=== PATIENT | male | born 1950 | race Two or more races ===

== ENCOUNTER 2020-08-22 14:25 | Inpatient (IN) | payer MEDICARE, MEDICAID ==
[~2020-08-22] VITALS: Ht 177.8 cm; Wt 73.0 kg
[2020-08-22 14:28] VITALS: BP 121/78
--- NOTE | 2020-08-22 14:28 | NUR ---
ED Nurse Note: Patient from home and walked in due to evaluation for failure to thrive. Patient was sent by his PCP and was referred to be admitted. Reports generalized body pain and possible placement. AAO x4, ambulatory with non labored breathing.
--- NOTE | 2020-08-22 14:55 | Emergency Room Report ---
History of Present Illness General Chief Complaint: General Complaint Source: Patient Present Illness HPI Disclaimer: Please note that this report is being documented using [employer] technology. This can lead to erroneous entry secondary to incorrect interpretation by the dictating instrument. HPI: 70-year-old male history of Parkinson's disease, presents from home due to generalized weakness difficulty completing ADLs, multiple falls. Patient was formally on hospice but currently family decided to do a trial of physical therapy to see if patient could improve his condition. He is not having difficulty eating and taking care of himself. Primary care doctor is Dr. Cui. Patient is a poor historian. Allergies: Coded Allergies: No Known Allergies (Unverified , 08/22/20) COVID-19 Screening Contact w/high risk pt: No Experienced COVID-19 symptoms?: No COVID-19 Testing performed SUPERVISOR CELL MAINTENANCE: No Patient History Reviewed Nursing Documentation: PMH: Agreed; PSxH: Agreed Nursing Documentation-PMH Past Medical History: No History, Except For Hx Hypertension: Yes Hx Neurological Problems: Yes - parkinsons disease Review of Systems All Other Systems: negative except mentioned in HPI Physical Exam Vital Signs Date Time Temp Pulse Resp B/P (MAP) Pulse Ox O2 Delivery O2 Flow Rate FiO2 08/22/20 14:28 97.5 80 20 121/78 (92) 100 Room Air Sp02 EP Interpretation: reviewed, normal General Appearance: no apparent distress, Chronically Ill Head: normocephalic, atraumatic Eyes: bilateral eye PERRL, bilateral eye EOMI ENT: hearing grossly normal, moist mucus membranes Neck: full range of motion, supple, other - No midline tenderness Respiratory: lungs clear, normal breath sounds, no rhonchi, no respiratory distress, no retraction, no wheezing Cardiovascular #1: normal peripheral pulses, regular rate, rhythm, no murmur Gastrointestinal: non tender, soft, non-distended, no guarding Musculoskeletal: other - CT spine and T-spine nontender palpation lumbar spine mildly tender without step-off or deformity, patient ambulates with assist Neurologic: alert, no focal defects, other - Patient oriented to name and place. Skin: normal color, warm/dry Medical Decision Making Diagnostic Impression: Primary Impression: Failure to thrive Additional Impressions: Frequent falls Low back pain History of Parkinson's disease ER Course MDM: Differential included not limited to failure to thrive, dehydration, worsening Parkinson's disease, back contusion, lumbar injury to name a few Clinical course-IV inserted, laboratory studies were sent. Laboratory studies did not demonstrate any significant abnormalities. CT scan of the brain was ordered did not show any acute traumatic injury in addition lumbar CT did not show any evidence of acute traumatic injury. As patient unable to complete his ADLs with frequent falls will be placed on the medical floor for further observation and treatment. Admitted under Dr. Cui. Labs - Laboratory Tests Test 08/22/20 14:50 08/22/20 15:00 White Blood Count 9.7 K/UL (4.8-10.8) Red Blood Count 4.76 M/UL (4.70-6.10) Hemoglobin 14.6 G/DL (14.2-18.0) Hematocrit 42.4 % (42.0-52.0) Mean Corpuscular Volume 89 FL (80-99) Mean Corpuscular Hemoglobin 30.7 PG (27.0-31.0) Mean Corpuscular Hemoglobin Concent 34.4 G/DL (32.0-36.0) Red Cell Distribution Width 12.4 % (11.6-14.8) Platelet Count 163 K/UL (150-450) Mean Platelet Volume 7.9 FL (6.5-10.1) Neutrophils (%) (Auto) 53.2 % (45.0-75.0) Lymphocytes (%) (Auto) 35.8 % (20.0-45.0) Monocytes (%) (Auto) 7.9 % (1.0-10.0) Eosinophils (%) (Auto) 2.2 % (0.0-3.0) Basophils (%) (Auto) 0.8 % (0.0-2.0) Sodium Level 142 MMOL/L (136-145) Potassium Level 3.5 MMOL/L (3.5-5.1) Chloride Level 106 MMOL/L (98-107) Carbon Dioxide Level 29 MMOL/L (21-32) Anion Gap 7 mmol/L (5-15) Blood Urea Nitrogen 12 mg/dL (7-18) Creatinine 0.8 MG/DL (0.55-1.30) Estimated Glomerular Filtration Rate > 60 mL/min (>60) Glucose Level 126 MG/DL (74-106) H Calcium Level 8.6 MG/DL (8.5-10.1) Total Bilirubin 0.7 MG/DL (0.2-1.0) Aspartate Amino Transferase (AST) 13 U/L (15-37) L Alanine Aminotransferase (ALT) < 6 U/L (12-78) L Alkaline Phosphatase 76 U/L (46-116) Total Protein 6.6 G/DL (6.4-8.2) Albumin 3.6 G/DL (3.4-5.0) Globulin 3.0 g/dL Albumin/Globulin Ratio 1.2 (1.0-2.7) Lipase 70 U/L (73-393) L Urine Color Yellow Urine Appearance Slightly cloudy Urine pH 7 (4.5-8.0) Urine Specific [place] 1.015 (1.005-1.035) Urine Protein Negative (NEGATIVE) Urine Glucose (UA) Negative (NEGATIVE) Urine Ketones 2+ (NEGATIVE) H Urine Blood 1+ (NEGATIVE) H Urine Nitrite Negative (NEGATIVE) Urine Bilirubin Negative (NEGATIVE) Urine Urobilinogen Normal MG/DL (0.0-1.0) Urine Leukocyte Esterase Negative (NEGATIVE) Urine RBC 0-2 /HPF (0 - 0) H Urine WBC 0-2 /HPF (0 - 0) Urine Squamous Epithelial Cells None /LPF (NONE/OCC) Urine Amorphous Sediment Moderate /LPF (NONE) H Urine Bacteria Few /HPF (NONE) CT/MRI/US Diagnostic Results CT/MRI/US Diagnostic Results #1: Imaging Test Ordered: CT scan of the brain Impression No acute process CT/MRI/US Diagnostic Results #2: Imaging Test Ordered: CT scan of the L-spine Impression No acute traumatic injury Last Vital Signs Date Time Temp Pulse Resp B/P (MAP) Pulse Ox O2 Delivery O2 Flow Rate FiO2 08/22/20 14:28 97.5 80 20 121/78 (92) 100 Room Air Disposition: ADMITTED INPATIENT Condition: Serious Tez Olmstead M.D. Aug 22, 2020 14:55
--- NOTE | 2020-08-22 15:08 | NUR ---
ED Nurse Note: Collected blood and urine then sent.
[2020-08-22 15:13] LABS: BASOPHILS % (AUTO) 0.8 % (0.0-2.0); EOSINOPHILS % (AUTO) 2.2 % (0.0-3.0); HEMATOCRIT 42.4 % (42.0-52.0); HEMOGLOBIN 14.6 G/DL (14.2-18.0); LYMPHOCYTES % (AUTO) 35.8 % (20.0-45.0); MEAN CORPUSCULAR VOLUME 89 FL (80-99); MONOCYTES % (AUTO) 7.9 % (1.0-10.0); NEUTROPHILS % (AUTO) 53.2 % (45.0-75.0); PLATELET COUNT 163 K/UL (150-450); RED BLOOD COUNT 4.76 M/UL (4.70-6.10); RED CELL DISTRIBUTION WIDTH 12.4 % (11.6-14.8); WHITE BLOOD COUNT 9.7 K/UL (4.8-10.8)
[2020-08-22 15:20] LABS: ANION GAP 7 mmol/L (5-15); BLOOD UREA NITROGEN 12 mg/dL (7-18); CALCIUM 8.6 MG/DL (8.5-10.1); CARBON DIOXIDE 29 MMOL/L (21-32); CHLORIDE 106 MMOL/L (98-107); CREATININE 0.8 MG/DL (0.55-1.30); POTASSIUM 3.5 MMOL/L (3.5-5.1); SODIUM 142 MMOL/L (136-145)
[2020-08-22 15:25] LABS: ALANINE AMINOTRANSFERASE < 6 U/L (12-78); ALBUMIN 3.6 G/DL (3.4-5.0); ALBUMIN/GLOBULIN RATIO 1.2 (1.0-2.7); ALKALINE PHOSPHATASE 76 U/L (46-116); ASPARTATE AMINO TRANSFERASE 13 U/L (15-37); BILIRUBIN,TOTAL 0.7 MG/DL (0.2-1.0)
[2020-08-22 15:31] LABS: APPEARANCE,URINE SLIGHTLY CLOUDY; BILIRUBIN, URINE NEGATIVE (NEGATIVE); GLUCOSE, URINE (UA) NEGATIVE (NEGATIVE); KETONES,URINE 2+ (NEGATIVE); LEUKOCYTE ESTERASE ,URINE NEGATIVE (NEGATIVE); NITRITE,URINE NEGATIVE (NEGATIVE); PH,URINE 7 (4.5-8.0); PROTEIN,URINE NEGATIVE (NEGATIVE); UROBILINOGEN,URINE NORMAL MG/DL (0.0-1.0)
[2020-08-22 15:33] LABS: COLOR,URINE YELLOW
--- NOTE | 2020-08-22 16:14 | NUR ---
ED Nurse Note: Telephone report given to Hudson Chao for continuity of care.
[2020-08-22] MEDS ORDERED: LORazepam 1mg tab ORAL PRN (16:15)
[2020-08-22] MEDS ORDERED: Morphine Sulfate 2mg/ml Inj(IV/IM USE ONLY) IVP PRN (16:15)
--- NOTE | 2020-08-22 16:15 | Diagnostic Imaging Report ---
Indications: Trauma, pain, history of multiple falls Technique: Spiral acquisitions obtained through the lumbar spine. Multiplanar reconstructions were generated. No IV contrast utilized. Total dose length product 257 mGycm. CTDIvol(s) 7 mGy. Dose reduction achieved using automated exposure control Comparison: none Findings: Bony alignment is normal. Vertebral body heights are preserved. No acute fracture. No dislocation. There are degenerative proliferative changes at multiple levels. The disc spaces are preserved. There is some vacuum disc formation at L2-3 and at L4-5. At L4-5, there is circumferential annular bulge as well as broad-based posterior disc protrusion. This results in moderate narrowing of the spinal canal, as well as mild compromise of the bilateral neural foramina. There is bilateral facet arthrosis at this level. At L5-S1, there is circumferential annular bulge which does not significantly narrow the spinal canal. There is moderate left and mild to moderate right neural foraminal stenosis. At the remaining disc levels, no significant disc bulge or protrusion, spinal stenosis, or neural foraminal stenosis. The included extraspinal soft tissues are unremarkable Impression: No acute bony trauma Degenerative changes, as detailed above The CT scanner at [facility] is accredited by the [employer] and the scans are performed using protocols designed to limit radiation exposure to as low as reasonably achievable to attain images of sufficient resolution adequate for diagnostic evaluation.
--- NOTE | 2020-08-22 16:17 | Diagnostic Imaging Report ---
Indications: Head trauma, multiple falls, head pain Technique: Spiral acquisitions obtained through the brain. Angled axial and coronal 5 x 5 mm slices were reconstructed. Total dose length product 1003 mGycm. CTDI vol(s) 53 mGy. Dose reduction achieved using automated exposure control Comparison: None. Findings: No acute intracranial hemorrhage or edema, mass effect, nor midline shift. Normal size ventricles and extra-axial CSF spaces. Normal sow-white differentiation. The mastoids are clear. The visualized orbits and sinuses are unremarkable. The calvarium is intact. Impression: Negative The CT scanner at [facility] is accredited by the [employer] and the scans are performed using protocols designed to limit radiation exposure to as low as reasonably achievable to attain images of sufficient resolution adequate for diagnostic evaluation.
[2020-08-22 16:28] VITALS: BP 118/70
--- NOTE | 2020-08-22 16:28 | NUR ---
ED Nurse Note: patient transferred to med surg unit with all his belongings.
--- NOTE | 2020-08-22 16:42 | History and Physical ---
History of Present Illness General Date patient seen: Aug 22, 2020 Time patient seen: 15:00 Reason for Hospitalization: General Complaint OF WEAKNESS AND FALLS AT HOME Present Illness HPI 70-year-old male history of Parkinson's disease, presents from home due to generalized weakness difficulty completing ADLs, multiple falls. Patient was formally on hospice but currently family decided to do a trial of physical therapy to see if patient could improve his condition. he is complaint with his medications. He is not having difficulty eating and taking care of himself. Patient is a poor historian and reports back pain. I spoke with Dr. Olmstead from the ER and admission is requested for medical work up, rehabilitation evaluation. Allergies: Coded Allergies: No Known Allergies (Unverified , 08/22/20) COVID-19 Screening Contact w/high risk pt: No Experienced COVID-19 symptoms?: No Patient History Healthcare decision maker Resuscitation status Advanced Directive on File Review of Systems All Other Systems: negative except mentioned in HPI Physical Exam General Appearance: WD/WN Lines, tubes and drains: peripheral HEENT: normocephalic, atraumatic Neck: non-tender, normal alignment Respiratory/Chest: lungs clear Cardiovascular/Chest: normal rate Abdomen: non tender Skin Exam: normal pigmentation Neurologic: pan helper II-XII grossly normal Last 24 Hour Vital Signs Date Time Temp Pulse Resp B/P (MAP) Pulse Ox O2 Delivery O2 Flow Rate FiO2 08/22/20 14:38 80 20 Room Air 08/22/20 14:28 97.5 80 20 121/78 (92) 100 Room Air 08/22/20 14:28 97.5 80 20 121/78 100 Room Air Laboratory Tests Test 08/22/20 14:50 08/22/20 15:00 White Blood Count 9.7 K/UL (4.8-10.8) Red Blood Count 4.76 M/UL (4.70-6.10) Hemoglobin 14.6 G/DL (14.2-18.0) Hematocrit 42.4 % (42.0-52.0) Mean Corpuscular Volume 89 FL (80-99) Mean Corpuscular Hemoglobin 30.7 PG (27.0-31.0) Mean Corpuscular Hemoglobin Concent 34.4 G/DL (32.0-36.0) Red Cell Distribution Width 12.4 % (11.6-14.8) Platelet Count 163 K/UL (150-450) Mean Platelet Volume 7.9 FL (6.5-10.1) Neutrophils (%) (Auto) 53.2 % (45.0-75.0) Lymphocytes (%) (Auto) 35.8 % (20.0-45.0) Monocytes (%) (Auto) 7.9 % (1.0-10.0) Eosinophils (%) (Auto) 2.2 % (0.0-3.0) Basophils (%) (Auto) 0.8 % (0.0-2.0) Sodium Level 142 MMOL/L (136-145) Potassium Level 3.5 MMOL/L (3.5-5.1) Chloride Level 106 MMOL/L (98-107) Carbon Dioxide Level 29 MMOL/L (21-32) Anion Gap 7 mmol/L (5-15) Blood Urea Nitrogen 12 mg/dL (7-18) Creatinine 0.8 MG/DL (0.55-1.30) Estimat Glomerular Filtration Rate > 60 mL/min (>60) Glucose Level 126 MG/DL (74-106) H Calcium Level 8.6 MG/DL (8.5-10.1) Total Bilirubin 0.7 MG/DL (0.2-1.0) Aspartate Amino Transf (AST/SGOT) 13 U/L (15-37) L Alanine Aminotransferase (ALT/SGPT) < 6 U/L (12-78) L Alkaline Phosphatase 76 U/L (46-116) Total Protein 6.6 G/DL (6.4-8.2) Albumin 3.6 G/DL (3.4-5.0) Globulin 3.0 g/dL Albumin/Globulin Ratio 1.2 (1.0-2.7) Lipase 70 U/L (73-393) L Urine Color Yellow Urine Appearance Slightly cloudy Urine pH 7 (4.5-8.0) Urine Specific [place] 1.015 (1.005-1.035) Urine Protein Negative (NEGATIVE) Urine Glucose (UA) Negative (NEGATIVE) Urine Ketones 2+ (NEGATIVE) H Urine Blood 1+ (NEGATIVE) H Urine Nitrite Negative (NEGATIVE) Urine Bilirubin Negative (NEGATIVE) Urine Urobilinogen Normal MG/DL (0.0-1.0) Urine Leukocyte Esterase Negative (NEGATIVE) Urine RBC 0-2 /HPF (0 - 0) H Urine WBC 0-2 /HPF (0 - 0) Urine Squamous Epithelial Cells None /LPF (NONE/OCC) Urine Amorphous Sediment Moderate /LPF (NONE) H Urine Bacteria Few /HPF (NONE) Height (Feet): 5 Height (Inches): 10.00 Weight (Pounds): 161 Medications Current Medications Medications (Trade) Dose Ordered Sig/Erica Route PRN Reason Start Time Stop Time Status Last Admin Dose Admin Acetaminophen (Tylenol) 650 mg Q4H PRN ORAL Mild Pain (Pain Scale 1-3) 08/22/20 16:15 09/21/20 16:14 Dextrose (Dextrose 50%) 25 ml Q30M PRN IV Hypoglycemia 08/22/20 16:15 11/20/20 16:14 Dextrose (Dextrose 50%) 50 ml Q30M PRN IV Hypoglycemia 08/22/20 16:15 11/20/20 16:14 Docusate Sodium (Colace) 100 mg EVERY 12 HOURS ORAL 08/22/20 21:00 09/21/20 20:59 Enoxaparin Sodium (Lovenox) 40 mg Q24H SUBQ 08/22/20 18:00 11/20/20 17:59 Lorazepam (Ativan) 1 mg Q4H PRN ORAL For Anxiety 08/22/20 16:15 08/29/20 16:14 Morphine Sulfate (Morphine Sulfate) 1 mg Q3H PRN IVP For Pain 08/22/20 16:15 08/29/20 16:14 Ondansetron HCl (Zofran) 4 mg Q6H PRN IVP Nausea & Vomiting 08/22/20 16:15 09/21/20 16:14 Pantoprazole (Protonix) 40 mg DAILY ORAL 08/23/20 09:00 09/22/20 08:59 Sodium Chloride 1,000 ml @ 100 mls/hr Q10H IV 08/22/20 15:00 09/21/20 14:59 08/22/20 15:06 Temazepam (Restoril) 15 mg HSPRN PRN ORAL Insomnia 08/22/20 16:15 08/29/20 16:14 Assessment/Plan Status: not improved Assessment/Plan: 70-year-old male history of Parkinson's disease, presents from home due to generalized weakness difficulty completing ADLs, multiple falls. # Back pain X rays and CT head ordered and will follow up results Pain control # Parkinson's disease with no autonomic dysfunction. Resume Sinemet. At home he uses Neupro TD patch which is not in the [facility] formulary. Will request family to bring the medication. # Hypertensive heart disease Resume Amlodipine # Generalized weakness and recurrent falls PT evaluation needed Consider SNF placement if indicated. # MDD Resume Trazadone DIet Cardiac DVT ppx with LMWH FULL CODE Estimate 2-3 hospital stay for placement if indicated. Victor Manuel Cui MD Aug 22, 2020 16:42
--- NOTE | 2020-08-22 16:49 | NUR ---
NURSE NOTES: Patient received from ER from AIDE Mendoza. Patient arrived at unit at 1640, awake, alert and oriented x 3-4, able to verbalize needs with unclear speech noted, no SOB, skin warm and dry to touch, denies any pain or discomfort at this time, bed set in lowest position with breaks engaged and alarm on. On room air. IV line present on right AC, skin assessment done, no skin breakdown noted at this time. Belongings checked and complete. Pt was oriented to room and staff, adjusting well. Will continue to monitor and proceed with plan of care, call light within reach.
[2020-08-22] MEDS: Levodopa/Carbidopa 25/100 tab ORAL SCH ×2 (17:03→20:23)
[2020-08-22] MEDS: Enoxaparin 40mg Inj SUBQ SCH (17:04)
--- NOTE | 2020-08-22 19:30 | NUR ---
NURSE HAND-OFF: Important Events on Shift:[fall and safety precautions, IV fluids, monitor VS and labs, assisting with ADLs] Patient Status: [stable] Diet: [regular low sodium diet] Pending Orders: [] Pending Results/Labs:[] Pending MD notification:[] Latest Vital Signs: Temperature 98.2 , Pulse 74 , B/P 123 /75 , Respiratory Rate 16 , O2 SAT 100 , Room Air, O2 Flow Rate . Vital Sign Comment: [] Latest Arrington Fall Score: 55 Fall Risk: High Risk Safety Measures: Call light Within Reach, Bed Alarm , Side Rails Side Rails x2, Bed position . Fall Precautions: Yellow Socks Report given to [AIDE Aranda].
[2020-08-22 20:00] VITALS: BP 123/76
--- NOTE | 2020-08-22 20:08 | NUR ---
NURSE NOTES: Patient is in bed resting at this time. Able to make needs known. On room air with no signs of distress or SOB. IV intact and patent. Bed locked and in lowest position. Call light in reach. Will continue plan of care.
[2020-08-22] MEDS: TraZODone 50mg tab ORAL SCH (20:23)
[2020-08-22] MEDS: Docusate 100mg cap ORAL SCH (20:23)
[2020-08-23 04:00] VITALS: BP 146/81
--- NOTE | 2020-08-23 06:31 | NUR ---
NURSE HAND-OFF: Important Events on Shift: No events Patient Status: Stable Diet: Low Na Diet Pending Orders: N/A Pending Results/Labs: CBC, TSH, Mag, Lipid panel, HA1C, BMP Pending MD notification: N/A Latest Vital Signs: Temperature 97.7 , Pulse 65 , B/P 146 /81 , Respiratory Rate 18 , O2 SAT 96 , Room Air, O2 Flow Rate . Vital Sign Comment: N/A Latest Arrington Fall Score: 55 Fall Risk: High Risk Safety Measures: Call light Within Reach, Bed Alarm Zone 1, Side Rails Side Rails x2, Bed position Low and Locked. Fall Precautions: Yellow Socks Yellow Gown Door Sign Patient Fall Education Addendum: 08/23/20 at 0734 by JASBIR RIOS RN Report given to AIDE Chao
[2020-08-23 07:22] LABS: ANION GAP 8 mmol/L (5-15); BASOPHILS % (AUTO) 0.8 % (0.0-2.0); BLOOD UREA NITROGEN 9 mg/dL (7-18); CALCIUM 8.6 MG/DL (8.5-10.1); CARBON DIOXIDE 27 MMOL/L (21-32); CHLORIDE 108 MMOL/L (98-107); CHOLESTEROL 175 MG/DL (< 200); CREATININE 0.9 MG/DL (0.55-1.30); EOSINOPHILS % (AUTO) 4.2 % (0.0-3.0); HDL CHOLESTEROL 53 MG/DL (40-60); HEMATOCRIT 45.9 % (42.0-52.0); HEMOGLOBIN 15.1 G/DL (14.2-18.0); LYMPHOCYTES % (AUTO) 38.2 % (20.0-45.0); MEAN CORPUSCULAR VOLUME 92 FL (80-99); MONOCYTES % (AUTO) 7.6 % (1.0-10.0); NEUTROPHILS % (AUTO) 49.2 % (45.0-75.0); PLATELET COUNT 166 K/UL (150-450); POTASSIUM 3.6 MMOL/L (3.5-5.1); RED BLOOD COUNT 4.99 M/UL (4.70-6.10); RED CELL DISTRIBUTION WIDTH 12.5 % (11.6-14.8); SODIUM 143 MMOL/L (136-145); TRIGLYCERIDES 85 MG/DL (30-150); WHITE BLOOD COUNT 8.3 K/UL (4.8-10.8)
--- NOTE | 2020-08-23 07:28 | NUR ---
NURSE NOTES: Received report from AIDE Aranda. Patient in bed, awake, alert and oriented x 3-4, no SOB, bed in lowest position with breaks engaged and alarm on, on room air, denies any pain or discomfort at this time, consumed 100% of meals, IV line intact and patent running IV hydration, will continue to monitor and proceed with plan of care, call light within reach at all times
[2020-08-23 08:00] VITALS: BP 138/79
[2020-08-23] MEDS: Docusate 100mg cap ORAL SCH ×2 (08:24→21:15)
[2020-08-23] MEDS: Levodopa/Carbidopa 25/100 tab ORAL SCH ×4 (08:24→21:15)
[2020-08-23] MEDS: Amantadine 100mg cap ORAL SCH (08:25)
--- NOTE | 2020-08-23 10:35 | NUR ---
PT EVALUATION NOTE Patient seen for initial evaluation and treatment initiated. Patient presents with generalized weakness and decreased balance which impairs patient's ability to perform mobility tasks safely. Patient able to perform bed mobility and transfer with SBA. Patient able to ambulate 75 ft with CGA and a FWW. Patient with festinating gait, is at high risk for falls. Patient will benefit from skilled inpatient PT intervention to increase strength and postural stability for improved level of functional mobility and for safety. Recommend discharge to SNF for continued rehab once medically cleared by MD as patient is a high fall risk. Patient states that he has a FWW and a wheelchair at home. Addendum: 08/23/20 at 1315 by RAFAEL BOLIVAR PT Amended: Links added.
--- NOTE | 2020-08-23 11:08 | NUR ---
RD ASSESSMENT & RECOMMENDATIONS SEE CARE ACTIVITY FOR COMPLETE ASSESSMENT DAILY ESTIMATED NEEDS: Needs based on cardiac 72.5kg 25-30 kcals/kg 7952-2112 total kcals 1-1.2 g protein/kg 73-87 g total protein 25-30 mL/kg 0427-2568 total fluid mLs NUTRITION DIAGNOSIS: Decrease sodium needs r/t cardiac history as evidenced by pt w/ HTN, BP elev (138/79), w/ elev LDL (112) CURRENT DIET: Low Na diet PO DIET RECOMMENDATIONS: Maintain Low Na diet 1:1 feeds ADDITIONAL RECOMMENDATIONS: 1) Maintain calibrated bed scale wts 2) Monitor BG, need for carb control diet 3) Add Ensure Enlive 1 bottle qdaily (change to Glucerna w/ elev BG) 4) 1:1 feeds w/ all meals
[2020-08-23 12:00] VITALS: BP 133/84
--- NOTE | 2020-08-23 14:16 | NUR ---
CASE MANAGEMENT:INITIAL REVIEW 70 YR OLD MALE BIB FAMILY FROM HOME CC;GENERAL COMPLAINT PMH;PARKINSON'S DISEASE SI;FAILURE TO THRIVE 98.2 80 20 123/76 98% ON RA HEAD CT ~ NEGATIVE SPINE CT ~ No acute bony trauma. Degenerative changes, as detailed above IS;IVF NS ADMITTED TO MED SURG MED SURG STATUS DCP;SNF PLACEMENT
--- NOTE | 2020-08-23 14:23 | NUR ---
DISCHARGE PLANNING PATIENT HAS BEEN REFERRED [facility] P [phone] F [phone] Addendum: 08/24/20 at 1414 by THEA GREENE LVN LVN Gil PRADO AT [facility]. PATIENT ACCEPTED AND ABDULKADIR NEWSOME CAN ADMIT PATIENT OF 08/25/[address] GREENE INFORMED
--- NOTE | 2020-08-23 14:43 | General Progress Note ---
Subjective Date patient seen: Aug 23, 2020 Time patient seen: 14:00 ROS Limited/Unobtainable: Yes Allergies: Coded Allergies: No Known Allergies (Unverified , 08/22/20) All Systems: reviewed and negative except above Subjective Patient is resting comfortably. He reports taking Sinemet every 3 hours at home. Denies new pain, discomfort. Appetite and sleep are adequate. PT session was done. Objective Last 24 Hour Vital Signs Date Time Temp Pulse Resp B/P (MAP) Pulse Ox O2 Delivery O2 Flow Rate FiO2 08/23/20 12:00 98.2 74 18 133/84 (100) 98 08/23/20 09:00 Room Air 08/23/20 08:00 98.9 70 18 138/79 (98) 98 08/23/20 04:00 97.7 65 18 146/81 (102) 96 08/22/20 21:00 Room Air 08/22/20 20:00 98.2 79 18 123/76 (92) 98 08/22/20 17:28 Room Air 08/22/20 17:03 74 123/75 08/22/20 16:28 98.2 74 16 118/70 100 Room Air 08/22/20 16:28 98.2 74 16 118/70 100 Room Air Intake and Output 08/22/20 08/23/20 19:00 07:00 Intake Total 220 ml 300 ml Balance 220 ml 300 ml Intake Oral 120 ml 300 ml IV Total 100 ml # Voids 2 4 Laboratory Tests 08/22/20 14:50: White Blood Count 9.7, Red Blood Count 4.76, Hemoglobin 14.6, Hematocrit 42.4, Mean Corpuscular Volume 89, Mean Corpuscular Hemoglobin 30.7, Mean Corpuscular Hemoglobin Concent 34.4, Red Cell Distribution Width 12.4, Platelet Count 163, Mean Platelet Volume 7.9, Neutrophils (%) (Auto) 53.2, Lymphocytes (%) (Auto) 35.8, Monocytes (%) (Auto) 7.9, Eosinophils (%) (Auto) 2.2, Basophils (%) (Auto) 0.8, Sodium Level 142, Potassium Level 3.5, Chloride Level 106, Carbon Dioxide Level 29, Anion Gap 7, Blood Urea Nitrogen 12, Creatinine 0.8, Estimat Glome rular Filtration Rate > 60, Glucose Level 126H, Calcium Level 8.6, Total Bilirubin 0.7, Aspartate Amino Transf (AST/SGOT) 13L, Alanine Aminotransferase (ALT/SGPT) < 6L, Alkaline Phosphatase 76, Total Protein 6.6, Albumin 3.6, Globulin 3.0, Albumin/Globulin Ratio 1.2, Lipase 70L 08/22/20 15:00: Urine Color Yellow, Urine Appearance Slightly cloudy, Urine pH 7, Urine Specific [place] 1.015, Urine Protein Negative, Urine Glucose (UA) Negative, Urine Ketones 2+H, Urine Blood 1+H, Urine Nitrite Negative, Urine Bilirubin Negative, Urine Urobilinogen Normal, Urine Leukocyte Esterase Negative, Urine RBC 0-2H, Urine WBC 0-2, Urine Squamous Epithelial Cells None, Urine Amorphous Sediment ModerateH, Urine Bacteria Few 08/23/20 06:10: White Blood Count 8.3, Red Blood Count 4.99, Hemoglobin 15.1, Hematocrit 45.9, Mean Corpuscular Volume 92, Mean Corpuscular Hemoglobin 30.2, Mean Corpuscular Hemoglobin Concent 32.8, Red Cell Distribution Width 12.5, Platelet Count 166, Mean Platelet Volume 7.7, Neutrophils (%) (Auto) 49.2, Lymphocytes (%) (Auto) 38.2, Monocytes (%) (Auto) 7.6, Eosinophils (%) (Auto) 4.2H, Basophils (%) (Auto) 0.8, Sodium Level 143, Potassium Level 3.6, Chloride Level 108H, Carbon Dioxide Level 27, Anion Gap 8, Blood Urea Nitrogen 9, Creatinine 0.9, Estimat Glomerular Filtration Rate > 60, Glucose Level 84, Calcium Level 8.6, Hemoglobin A1c 6.0, Magnesium Level 2.1, Triglycerides Level 85, Cholesterol Level 175, LDL Cholesterol 112H, HDL Cholesterol 53, Cholesterol/HDL Ratio 3.3, Thyroid Stimulating Hormone (TSH) 0.591 Height (Feet): 5 Height (Inches): 10.00 Weight (Pounds): 161 General Appearance: WD/WN EENT: PERRL/EOMI Neck: non-tender Cardiovascular: normal peripheral pulses Respiratory/Chest: lungs clear Abdomen: soft Neurologic: scutcher tender II-XII grossly normal Skin: normal pigmentation Assessment/Plan Status: not improved Assessment/Plan: 70-year-old male history of Parkinson's disease, presents from home due to generalized weakness difficulty completing ADLs, multiple falls. # Back pain CT L spine and CT head ordered and will follow up results are reviewed. CT head and CT lumbar spine without significant abnormalities. Pain control # Parkinson's disease with no autonomic dysfunction. Resume Sinemet. Will adjust therapy. [place] [facility] will continue chronic therapy. At home he uses Neupro TD patch [place] [facility] [place] Will request family to bring the medication. # Hypertensive heart disease On Amlodipine # Generalized weakness and recurrent falls PT evaluation needed SNF placement is recommended and referral per family request. # MDD Resume Trazadone DIet Cardiac DVT ppx with LMWH FULL CODE Estimate 2-3 hospital stay for placement if indicated. Victor Manuel Cui MD Aug 23, 2020 14:43
[2020-08-23 16:00] VITALS: BP 136/76
[2020-08-23] MEDS: EXELON TDERMAL SCH (16:28)
[2020-08-23] MEDS: Enoxaparin 40mg Inj SUBQ SCH (17:28)
--- NOTE | 2020-08-23 19:29 | NUR ---
NURSE HAND-OFF: Important Events on Shift:[fall and safety precautions, assisting with ADLs, IV hydration] Patient Status: [stable] Diet: [regular diet] Pending Orders: [] Pending Results/Labs:[] Pending MD notification:[] Latest Vital Signs: Temperature 98.6 , Pulse 88 , B/P 136 /76 , Respiratory Rate 18 , O2 SAT 98 , Room Air, O2 Flow Rate . Vital Sign Comment: [] Latest Arrington Fall Score: 55 Fall Risk: High Risk Safety Measures: Call light Within Reach, Bed Alarm Zone 1, Side Rails Side Rails x2, Bed position Low and Locked. Fall Precautions: Yellow Socks Yellow Gown Door Sign Patient Fall Education Report given to [AIDE Saini].
--- NOTE | 2020-08-23 19:30 | NUR ---
NURSE NOTES: Pt. received from AIDE Chao. Pt. AAOx4, on room air, breathing even and unlabored, no indications of respiratory distress, no complaints of pain. Instructed pt. to remain in bed and use call light for assistance to ensure safety, pt. acknowledged and verbalized understanding. IV right AC 20g intact and patent. Bed low and locked, side rails x2 up, bed alarm active, and call light in reach.
[2020-08-23 20:00] VITALS: BP 148/83
[2020-08-23] MEDS: TraZODone 50mg tab ORAL SCH (21:15)
[2020-08-24] VITALS: BP 149/93
[2020-08-24] MEDS: Levodopa/Carbidopa 25/100 tab ORAL SCH ×6 (00:16→20:14)
[2020-08-24 04:00] VITALS: BP 140/78
--- NOTE | 2020-08-24 07:03 | NUR ---
NURSE HAND-OFF: Important Events on Shift:[]pt ambulatory to bathroom with max assist, high fall risk, bedside commode provided Patient Status: sleeping Diet: low sodium Pending Orders: na Pending Results/Labs:na Pending MD notification:na Latest Vital Signs: Temperature 97.0 , Pulse 56 , B/P 140 /78 , Respiratory Rate 16 , O2 SAT 95 , Room Air, O2 Flow Rate . Vital Sign Comment: stable Latest Arrington Fall Score: 65 Fall Risk: High Risk Safety Measures: Call light Within Reach, Bed Alarm Zone 1, Side Rails Side Rails x2, Bed position Low and Locked. Fall Precautions: Yellow Socks Yellow Gown Patient Fall Education Report given to AIDE Chao.
--- NOTE | 2020-08-24 07:14 | NUR ---
NURSE NOTES: Received report from AIDE Saini. Patient in bed, awake, alert and oriented x 3-4, no SOB, bed in lowest position with breaks engaged and alarm on, pt is on room air, VS WNL, denies any pain or discomfort at this time, IV line intact and patent running IV hydration, will continue to monitor and proceed with plan of care, call light within reach at all times
[2020-08-24 08:00] VITALS: BP 139/81
[2020-08-24 08:01] LABS: BASOPHILS % (AUTO) 0.9 % (0.0-2.0); EOSINOPHILS % (AUTO) 4.4 % (0.0-3.0); HEMATOCRIT 38.6 % (42.0-52.0); HEMOGLOBIN 13.1 G/DL (14.2-18.0); LYMPHOCYTES % (AUTO) 41.9 % (20.0-45.0); MEAN CORPUSCULAR VOLUME 90 FL (80-99); MONOCYTES % (AUTO) 8.3 % (1.0-10.0); NEUTROPHILS % (AUTO) 44.5 % (45.0-75.0); PLATELET COUNT 147 K/UL (150-450); RED BLOOD COUNT 4.29 M/UL (4.70-6.10); RED CELL DISTRIBUTION WIDTH 12.4 % (11.6-14.8)
[2020-08-24 08:11] LABS: ANION GAP 4 mmol/L (5-15); BLOOD UREA NITROGEN 13 mg/dL (7-18); CARBON DIOXIDE 29 MMOL/L (21-32); CHLORIDE 109 MMOL/L (98-107); CREATININE 0.8 MG/DL (0.55-1.30); POTASSIUM 3.5 MMOL/L (3.5-5.1); SODIUM 142 MMOL/L (136-145)
[2020-08-24] MEDS: Amantadine 100mg cap ORAL SCH (08:17)
[2020-08-24] MEDS: Docusate 100mg cap ORAL SCH ×2 (08:17→20:14)
[2020-08-24] MEDS ORDERED: NEUPRO1 EAC1 TD (11:19)
[2020-08-24] MEDS ORDERED: LOSARTAN POTASS50 MG ORAL (11:19)
[2020-08-24] MEDS ORDERED: SINEMET 25-2501 EACH ORAL (11:19)
[2020-08-24 12:00] VITALS: BP 140/89
[2020-08-24] MEDS: EXELON TDERMAL SCH (14:07)
--- NOTE | 2020-08-24 15:17 | General Progress Note ---
Subjective Date patient seen: Aug 24, 2020 Time patient seen: 14:50 ROS Limited/Unobtainable: No Allergies: Coded Allergies: No Known Allergies (Unverified , 08/22/20) All Systems: reviewed and negative except above Subjective Patient is resting comfortably. Denies new pain, discomfort. Appetite and sleep are adequate. PT session was done. He will benefit from SNF and agrees. Objective Last 24 Hour Vital Signs Date Time Temp Pulse Resp B/P (MAP) Pulse Ox O2 Delivery O2 Flow Rate FiO2 08/24/20 12:00 98.0 61 18 140/89 (106) 98 08/24/20 09:00 Room Air 08/24/20 08:00 97.7 70 18 139/81 (100) 96 08/24/20 04:00 97.0 56 16 140/78 (98) 95 08/24/20 00:00 97.0 65 18 149/93 (111) 96 08/23/20 21:00 Room Air 08/23/20 20:00 97.9 69 18 148/83 (104) 98 08/23/20 16:00 98.6 88 18 136/76 (96) 98 Intake and Output 08/23/20 08/24/20 19:00 07:00 Intake Total 400 ml 1600 ml Balance 400 ml 1600 ml Intake Oral 400 ml 500 ml IV Total 1100 ml # Voids 4 3 Laboratory Tests 08/24/20 07:10: White Blood Count 6.0, Red Blood Count 4.29L, Hemoglobin 13.1L, Hematocrit 38.6L , Mean Corpuscular Volume 90, Mean Corpuscular Hemoglobin 30.5, Mean Corpuscular Hemoglobin Concent 33.9, Red Cell Distribution Width 12.4, Platelet Count 147L, Mean Platelet Volume 8.1, Neutrophils (%) (Auto) 44.5L, Lymphocytes (%) (Auto) 41.9, Monocytes (%) (Auto) 8.3, Eosinophils (%) (Auto) 4.4H, Basophils (%) (Auto) 0.9, Sodium Level 142, Potassium Level 3.5, Chloride Level 109H, Carbon Dioxide Level 29, Anion Gap 4L, Blood Urea Nitrogen 13, Creatinine 0.8, Estimat Glomerular Filtration Rate > 60, Glucose Level 80, Calcium Level 8.0L Height (Feet): 5 Height (Inches): 10.00 Weight (Pounds): 161 General Appearance: WD/WN EENT: PERRL/EOMI, pharynx normal Neck: non-tender Cardiovascular: normal rate Respiratory/Chest: lungs clear Abdomen: non tender Neurologic: custom protection officer II-XII grossly normal Assessment/Plan Status: progressing, not improved Assessment/Plan: 70-year-old male history of Parkinson's disease, presents from home due to generalized weakness difficulty completing ADLs, multiple falls. # Back pain CT L spine and CT head reviewed. CT head and CT lumbar spine without significant abnormalities. Pain control # Parkinson's disease with no autonomic dysfunction. Resume Sinemet. Will adjust therapy. Neurology service is limited at [facility] and will continue chronic therapy. At home he uses Neupro TD patch and started on Rivastigmine here at [facility]. # Hypertensive heart disease On Amlodipine, Compensated. # Generalized weakness and recurrent falls PT evaluation needed SNF placement is recommended and referral per family request. # MDD Resume Trazadone DIet Cardiac DVT ppx with LMWH FULL CODE Dispositon: SNF tomorrow. Victor Manuel Cui MD Aug 24, 2020 15:17
[2020-08-24 16:00] VITALS: BP 134/70
--- NOTE | 2020-08-24 16:17 | NUR ---
CASE MANAGEMENT:REVIEW SI;FAILURE TO THRIVE. PARKINSON'S DISEASE. 98.0 56 18 149/93 95% ON RA CA 8.0 IS;PROTONIX PO QD LOVENOX SUBQ QD IVF NS @ 100 ML/HR MED SURG STATUS DCP;FROM HOME PLAN; SNF PLACEMENT DC 08/25/20 TO [facility]
[2020-08-24] MEDS: Enoxaparin 40mg Inj SUBQ SCH (17:12)
--- NOTE | 2020-08-24 19:14 | NUR ---
NURSE HAND-OFF: Important Events on Shift:[IV fluids, PT, for DC in AM] Patient Status: [stable] Diet: [low sodium diet] Pending Orders: [] Pending Results/Labs:[] Pending MD notification:[] Latest Vital Signs: Temperature 98.3 , Pulse 60 , B/P 134 /70 , Respiratory Rate 18 , O2 SAT 98 , Room Air, O2 Flow Rate . Vital Sign Comment: [] Latest Arrington Fall Score: 65 Fall Risk: High Risk Safety Measures: Call light Within Reach, Bed Alarm Zone 1, Side Rails Side Rails x2, Bed position Low and Locked. Fall Precautions: Yellow Socks Yellow Gown Patient Fall Education Report given to [AIDE Saini].
--- NOTE | 2020-08-24 19:20 | NUR ---
NURSE NOTES: Pt. received from AIDE Chao. Pt. AAOx3, on room air, breathing is even and unlabored, no indications of SOB, no complaints of pain. IV right AC 20g intact and patent with NS at 75cc. Bed low and locked, side rails x3 up, bed alarm active and call light in reach.
[2020-08-24 20:00] VITALS: BP 142/82
[2020-08-24] MEDS: TraZODone 50mg tab ORAL SCH (20:14)
[2020-08-25] MEDS: Levodopa/Carbidopa 25/100 tab ORAL SCH ×4 (01:24→12:13)
[2020-08-25 04:00] VITALS: BP 128/74
--- NOTE | 2020-08-25 05:08 | NUR ---
NURSE NOTES: Pt. max assist to bathroom and bedside commode, high fall risk, legs buckle upon short distance ambulation.
--- NOTE | 2020-08-25 07:31 | NUR ---
NURSE HAND-OFF: Important Events on Shift:[]pt. ambulatory to BSC, needs max assist to ensure safety Patient Status: sleeping Diet: low sodium Pending Orders: anticipating discharge Pending Results/Labs:na Pending MD notification:na Latest Vital Signs: Temperature 97.7 , Pulse 68 , B/P 128 /74 , Respiratory Rate 18 , O2 SAT 97 , Room Air, O2 Flow Rate . Vital Sign Comment: stable Latest Arrington Fall Score: 65 Fall Risk: High Risk Safety Measures: Call light Within Reach, Bed Alarm Zone 1, Side Rails Side Rails x2, Bed position Low and Locked. Fall Precautions: Yellow Socks Yellow Gown Patient Fall Education Report given to AIDE Brewer.
--- NOTE | 2020-08-25 07:45 | NUR ---
NURSE NOTES: patient is resting comfortably in bed. He is AOx3 on a low sodium diet, skin is intact and a right AC IV 20G. He has been educated about using the call light to get assistance to go to the bathroom. he has history of falls at home. wearing yellow socks, yellow, gown, bed at lowest position, call light within reach.
[2020-08-25 08:00] VITALS: BP 140/82
[2020-08-25] MEDS: Docusate 100mg cap ORAL SCH (08:26)
[2020-08-25] MEDS: Amantadine 100mg cap ORAL SCH (08:26)
[2020-08-25] MEDS ORDERED: AMANTADINE100 M2 ORAL (10:20)
[2020-08-25] MEDS ORDERED: ATIVAN1 MG ORAL (10:20)
[2020-08-25] MEDS ORDERED: RESTORIL15 MG ORAL (10:20)
[2020-08-25] MEDS ORDERED: DESYREL50 MG ORAL (10:20)
--- NOTE | 2020-08-25 10:23 | Discharge Summary ---
Discharge Summary Hospital Course Date of Admission Aug 22, 2020 at 15:29 Date of Discharge 08/25/2020 Admitting Diagnosis Failure to thrive HPI Devendra Licea is a 70 year old male who was admitted on Aug 22, 2020 at 15:29 for Failure To Thrive Hospital Course 70-year-old male history of Parkinson's disease, presents from home due to generalized weakness difficulty completing ADLs, multiple falls. # Back pain CT L spine and CT head reviewed. CT head and CT lumbar spine without significant abnormalities. Pain control will be continued # Parkinson's disease with no autonomic dysfunction. Resumed Sinemet and Neupro TD patch and will coordinate Neurology outpatient follow up when returning to SNF. # Hypertensive heart disease Will continue medication and monitor closely. # Generalized weakness and recurrent falls PT evaluation needed SNF placement is recommended and referral per family request. # MDD Resume Trazadone DIet Cardiac FULL CODE Dispositon: SNF today Discharge Medications New Medications: Amantadine Hcl* (Amantadine*) 100 Mg Tablet 100 MG ORAL DAILY for 30 Days, #30 TAB Lorazepam* (Ativan*) 1 Mg Tablet 1 MG ORAL Q4H PRN for 30 Days, #30 TAB Temazepam* (Restoril*) 15 Mg Capsule 15 MG ORAL HSPRN PRN for 30 Days, #30 CAP Trazodone Hcl (Desyrel) 50 Mg Tablet 50 MG ORAL BEDTIME for 30 Days, #30 TAB Continued Medications: Carbidopa/Levodopa* (Sinemet 25-250 Mg Tablet*) 1 Each Tablet 1 TAB ORAL Q3HR for PARKINSONS, TAB Losartan Potassium* (Losartan Potassium*) 50 Mg Tablet 50 MG ORAL DAILY for Hypertension, TAB Rotigotine (Neupro) 1 Each Patch.td24 8 MG TD DAILY for PARKINSON'S, PATCH Discharge Discharge Vital Signs Last Vital Signs Date Time Temp Pulse Resp B/P (MAP) Pulse Ox O2 Delivery O2 Flow Rate FiO2 08/25/20 09:00 Room Air 08/25/20 08:00 98.9 65 17 140/82 (101) 97 Discharge Disposition Patient was discharged to [facility] Discharge Diagnoses: (1) Low back pain (2) Frequent falls (3) History of Parkinson's disease (4) Failure to thrive Victor Manuel Cui MD Aug 25, 2020 10:23
--- NOTE | 2020-08-25 11:57 | NUR ---
[facility] was [facility]. worm picker time is for 1200.
[2020-08-25 12:00] VITALS: BP 156/86
--- NOTE | 2020-08-25 14:50 | NUR ---
NURSE NOTES: patient was discharged at 1400 transported via ambulance escorted by 2 gear milling machine set up operator. patient ambulated to [facility] with 1 person assist. He is AOx3, no difficulty breathing, or pain. He left with all his belongings, medications, and discharge instructions.
== END 2020-08-25 14:17 | DRG 641 ==
LOC: EMR 15:20 → 4E 15:29 → EDBEDREQ 16:09
DX: R62.7 Adult failure to thrive (principal); G20 Parkinson's disease; I11.9 Hypertensive heart disease without heart failure; F32.9 Major depressive disorder, single episode, unspecified; R29.6 Repeated falls; M54.5 Low back pain
CPT/HCPCS: 36415; 70450; 72131; 80048; 80053; 80061; 81003; 83036; 83690; 83735; 84443; 85025; 99285; C9399; J7030; U0002